=== PATIENT | male | born 1975 | race Caucasian/White ===

== ENCOUNTER → 2019-02-28 | Outpatient (CLI) | payer BC ==
--- NOTE | 2019-03-05 10:23 | SLEEPCENT ---
DATE OF PROCEDURE: 02/28/2019 ORDERED BY: ARNAUD Mcduffie Nocturnal polysomnography was performed for evaluation of sleep physiology in this patient with a history of excessive somnolence and nonrestorative sleep who has comorbidities of hypertension and obesity. 8 hours of data were reviewed. There were 423 minutes of sleep identified. Sleep latency was normal at 10 minutes. Rapid eye movement (REM) latency was mildly delayed at 100 minutes. Sleep architecture was initially severely fragmented. Overall sleep efficiency was 89.9%. The patient's electrocardiogram showed a sinus rhythm with an average heart rate of 100 beats per minute. Rate ranged 65-125. Electroencephalogram (EEG) shows mild coarsening in background, otherwise normal waveforms for awake and sleep. There were 448 respiratory events identified of 10 seconds in duration or greater for an apnea-hypopnea index of 63.5. Having established the presence of obstructive sleep apnea syndrome early in testing, the study was stopped shortly after midnight for the application of pressure therapy. The patient was fit with a [employer], Sim[employer] full-face mask of medium size; 4 cm of water pressure were applied to the circuit and the lights were extinguished. Throughout the remaining hours of testing pressure titration was performed. Obstructive respiratory events were persistent despite CPAP pressures of 20 and despite optimal mask fit and minimal air leak the patient was changed to a bilevel device. Central apneic events were seen on inspiratory pressures of 25. Best sleep was appreciated on a bilevel device inspiratory 24/20. IMPRESSION: Severe obstructive sleep apnea syndrome (G47.33). Apnea-hypopnea index 63.5. RECOMMENDATIONS: Initiation of pressure therapy using a bilevel device and an initial pressure of 24/20 is recommended. Given the severity of the patient's disease and the limited period of time for optimal titration close clinical followup is recommended and pending clinical response return to sleep disorder center for a full night of titration may be helpful.
== END ==
LOC: M SLEEP 19:41
PROVIDERS: ATTEND Nurse Practitioner Family
DX: R06.83 Snoring (principal)

== ENCOUNTER → 2023-11-01 | Outpatient (CLI) | payer BC | LOC: M SLEEP 20:00 | PROVIDERS: ATTEND Nurse Practitioner Family | DX: G47.33 Obstructive sleep apnea (adult) (pediatric) (principal) ==